=== PATIENT | female | born 1950 | race Caucasian/White ===

== ENCOUNTER 2017-10-11 13:33 | Inpatient (IN) | payer MEDICARE ==
[~2017-10-11] VITALS: Ht 175.3 cm; Wt 64.4 kg
[2017-10-11 13:35] VITALS: BP 172/86; PULSE 100; RESP 17; TEMP 97.8; O2SAT 98
--- NOTE | 2017-10-11 15:44 | PD ---
HPI Chief Complaint: Fall Time Seen by Provider: 14:27 Travel History International Travel<30 days: No Contact w/Intl Traveler<30days: No Traveled to known affect area: No History of Present Illness HPI 67-year-old female presents emergency department via EMS for evaluation of right hip pain after she missed a step on her camper and fell. Patient has not ambulated since the event. Patient states she landed on her right hip she denies any other injuries or pain during this episode. She denies hitting her head or losing consciousness. Patient denies any major medical history. She does not take any daily medication. There is right leg shortening with external rotation noted. Right leg is neurovascularly intact. No ecchymosis or abrasions noted to the right hip. PFSH Past Medical History Diminished Hearing: No Medical other: Yes (LEFT WRIST FX) Tetanus Vaccination: > 5 Years Influenza Vaccination: Yes ?: Not : 2 Para: 2 Past Surgical History Surgical History: No Previous Surgery Social History Alcohol Use: No Tobacco Use: Yes Substance Use: No Allergies-Medications (Allergen,Severity, Reaction): Coded Allergies: codeine (Verified Allergy, Unknown, Nausea/Vomiting, 10/11/17) Reported Meds & Prescriptions Reported Meds & Active Scripts Active No Active Prescriptions or Reported Medications Review of Systems Except as stated in HPI: all other systems reviewed are Neg Physical Exam Narrative GENERAL: Well-nourished, well-developed 67-year-old female in no acute distress. SKIN: Focused skin assessment warm/dry. HEAD: Atraumatic. Normocephalic. EYES: Pupils equal and round. No scleral icterus. No injection or drainage. ENT: No nasal bleeding or discharge. Mucous membranes pink and moist. NECK: Trachea midline. No JVD. CARDIOVASCULAR: Regular rate and rhythm. No murmur appreciated. Pedal pulses + 2 bilaterally. RESPIRATORY: No accessory muscle use. Clear to auscultation. Breath sounds equal bilaterally. GASTROINTESTINAL: Abdomen soft, non-tender, nondistended. Hepatic and splenic margins not palpable. MUSCULOSKELETAL: Right leg shortening with external rotation noted. No clubbing. No cyanosis. No edema. NEUROLOGICAL: Awake and alert. No obvious cranial nerve deficits. Motor grossly within normal limits. Normal speech. PSYCHIATRIC: Appropriate mood and affect; insight and judgment normal. Data Data Last Documented VS Vital Signs Date Time Temp Pulse Resp B/P (MAP) Pulse Ox O2 Delivery O2 Flow Rate FiO2 10/11/17 17:16 17 10/11/17 15:58 97.8 100 170/83 (112) 98 Room Air Orders Orders Hip, Uni(Ap&Lat) W Ap Pelvis (10/11/17 14:47) Ice/Cold Pack (10/11/17 14:47) Complete Blood Count With Diff (10/11/17 16:33) Comprehensive Metabolic Panel (10/11/17 16:33) Prothrombin Time / Inr (Pt) (10/11/17 16:33) Act Partial Throm Time (Ptt) (10/11/17 16:33) Electrocardiogram (10/11/17 ) Morphine Inj (Morphine Inj) (10/11/17 17:00) Sodium Chlorid 0.9% 500 Ml Inj (Ns 500 M (10/11/17 17:00) Ondansetron Inj (Zofran Inj) (10/11/17 17:00) Admit Order (Ed Use Only) (10/11/17 17:16) Labs Laboratory Tests Test 10/11/17 16:35 White Blood Count 10.1 TH/MM3 Red Blood Count 4.28 MIL/MM3 Hemoglobin 13.2 GM/DL Hematocrit 40.1 % Mean Corpuscular Volume 93.7 FL Mean Corpuscular Hemoglobin 30.9 PG Mean Corpuscular Hemoglobin Concent 33.0 % Red Cell Distribution Width 13.1 % Platelet Count 258 TH/MM3 Mean Platelet Volume 9.6 FL Neutrophils (%) (Auto) 81.5 % Lymphocytes (%) (Auto) 12.3 % Monocytes (%) (Auto) 4.8 % Eosinophils (%) (Auto) 0.9 % Basophils (%) (Auto) 0.5 % Neutrophils # (Auto) 8.2 TH/MM3 Lymphocytes # (Auto) 1.2 TH/MM3 Monocytes # (Auto) 0.5 TH/MM3 Eosinophils # (Auto) 0.1 TH/MM3 Basophils # (Auto) 0.0 TH/MM3 CBC Comment DIFF FINAL Differential Comment Prothrombin Time 10.5 SEC Prothromb Time International Ratio 1.0 RATIO Activated Partial Thromboplast Time 24.8 SEC Total Protein 7.2 GM/DL Alkaline Phosphatase 93 U/L Alanine Aminotransferase (ALT/SGPT) 18 U/L Total Bilirubin 0.5 MG/DL MDM Medical Decision Making Medical Screen Exam Complete: Yes Emergency Medical Condition: Yes Differential Diagnosis Differential diagnoses include but not limited to right hip sprain, contusion, fracture, fall Narrative Course Right hip x-ray ordered and pending. Ice applied to the right hip. Right hip x-ray shows moderately angulated intra-trochanteric fracture of the right hip. IV placed and blood works sent to the lab. CBC, CMP, PT/INR ordered and pending. EKG ordered and interpreted. EKG shows sinus tachycardia with heart rate 103. 500 mL normal saline bolus, 4 mg IV Zofran, 2 mg IV morphine ordered. Patient has not eaten since last night. Orthopedics called. Patient will be admitted. Residents accepted admission. Dr. Davison called and he is coming to evaluate the patient. Patient admitted this time with Dr. Davison, orthopedics consulted. Diagnosis Primary Impression: Hip fracture Qualified Codes: S72.001A - Fracture of unspecified part of neck of right femur, initial encounter for closed fracture Additional Impression: Fall Qualified Codes: W19.XXXA - Unspecified fall, initial encounter Admitting Information Admitting Physician Requests: Admit Scripts No Active Prescriptions or Reported Meds Heather Kirkpatrick Oct 11, 2017 15:44
--- NOTE | 2017-10-11 15:51 | RADRPT ---
EXAM DATE/TIME: 10/11/2017 15:32 [facility] COMPARISON: No previous studies available for comparison. INDICATIONS : Right hip pain, fell today. MEDICAL HISTORY : None. SURGICAL HISTORY : None. ENCOUNTER: Initial ACUITY: 1 day PAIN SCORE: 10/10 LOCATION: Right hip and pelvis FINDINGS: The examination demonstrates a moderately angulated intratrochanteric fracture of the right hip. The remainder of the osseous structures visualized are intact. CONCLUSION: 1. Moderately angulated intratrochanteric fracture of the right hip. Iglesia Cabezas MD on October 11, 2017 at 15:48 Board Certified Radiologist. This report was verified electronically.
[2017-10-11 15:58] VITALS: BP 170/83; PULSE 100; RESP 17; TEMP 97.8; O2SAT 98
[2017-10-11] MEDS ORDERED: MORPHINE SULFATE 2 MG/ML INJ IV PUSH ONE (17:00)
[2017-10-11] MEDS ORDERED: ONDANSETRON HCL 4 MG/2 ML VIAL IV PUSH ONE (17:00)
[2017-10-11] MEDS ORDERED: SODIUM CHLORID 0.9% 500 ML INJ 500 ML IV ONE (17:00)
[2017-10-11 17:21] LABS: AUTOMATED NEUTROPHIL # 8.2 TH/MM3 (1.8-7.7); BASOPHIL % 0.5 % (0.0-2.0); EOSINOPHIL # 0.1 TH/MM3 (0-0.4); EOSINOPHIL % 0.9 % (0.0-4.0); HEMATOCRIT 40.1 % (35.0-46.0); HEMOGLOBIN 13.2 GM/DL (11.6-15.3); LYMPH % 12.3 % (9.0-44.0); LYMPHOCYTE # 1.2 TH/MM3 (1.0-4.8); MEAN CELL VOLUME 93.7 FL (80.0-100.0); MEAN CORPUSCULAR HEMOGLOBIN 30.9 PG (27.0-34.0); MEAN PLATELET VOLUME 9.6 FL (7.0-11.0); MONO % 4.8 % (0.0-8.0); MONOCYTE # 0.5 TH/MM3 (0-0.9); NEUT % 81.5 % (16.0-70.0); PLATELET COUNT 258 TH/MM3 (150-450); RED BLOOD COUNT 4.28 MIL/MM3 (4.00-5.30); RED CELL DISTRIBUTION WIDTH 13.1 % (11.6-17.2); WHITE BLOOD COUNT 10.1 TH/MM3 (4.0-11.0)
[2017-10-11 17:30] LABS: PROTHROMBIN TIME - PATIENT 10.5 SEC (9.8-11.6)
[2017-10-11 17:40] LABS: ALT (GPT) 18 U/L (10-53)
[2017-10-11 17:42] LABS: ALKALINE PHOSPHATASE 93 U/L (45-117); TOTAL BILIRUBIN ADULT 0.5 MG/DL (0.2-1.0); TOTAL PROTEIN 7.2 GM/DL (6.4-8.2)
[2017-10-11 17:44] LABS: ALBUMIN 3.7 GM/DL (3.4-5.0); AST (GOT) 32 U/L (15-37); BICARBONATE 26.7 MEQ/L (21.0-32.0); BLOOD UREA NITROGEN 9 MG/DL (7-18); CALCIUM 9.1 MG/DL (8.5-10.1); CHLORIDE 103 MEQ/L (98-107); CREATININE 0.74 MG/DL (0.50-1.00); GLOMERULAR FILTRATION RATE 78 ML/MIN (>89); GLUCOSE,RANDOM 114 MG/DL (74-106); SODIUM (NA) 137 MEQ/L (136-145)
[2017-10-11] MEDS ORDERED: HYDR-3288 PO (18:07)
[2017-10-11] MEDS ORDERED: ASPI81CH6 CHEW (18:08)
[2017-10-11] MEDS ORDERED: ENOX40P SQ (18:08)
[2017-10-11] MEDS ORDERED: SENNOSIDES 8.6 MG TAB PO PRN (18:15)
[2017-10-11] MEDS ORDERED: NALOXONE HCL 0.4 MG/ML AMP IV PUSH PRN (18:15)
[2017-10-11] MEDS ORDERED: MAGNESIUM HYDROXIDE SUSP 30 ML CUP PO PRN ×2 (18:15→21:00)
[2017-10-11] MEDS ORDERED: SODIUM CHLORIDE 0.9% FLUSH 10 ML FLUSH IV FLUSH PRN (18:15)
[2017-10-11] MEDS ORDERED: BISACODYL 10 MG SUPP RECTAL PRN (18:15)
[2017-10-11] MEDS ORDERED: LACTULOSE SYRUP 20 GM/30 ML CUP PO PRN (18:15)
--- NOTE | 2017-10-11 18:29 | HHI.HP ---
[facility] Service Family Medicine Primary Care Physician Unknown Admission Diagnosis right hip fracture Diagnoses: International Travel<30 Days: No Contact w/Intl Traveler<30days: No Known Affected Area: No History of Present Illness Patient was a 67-year-old female with no known chronic medical problems who came in for a "broken hip." She states that early this morning she was walking back into her camper stepped up onto the step lost her balance and fell down. It may be because it was raining out at the time and was slippery. She is unsure of how she fell, she may have fallen backwards. She reports a small bump on the back of her head that she noticed when she was brushing her hair. No loss of consciousness, headache, head pain, neck pain, change in vision, amnesia , nausea, vomiting. She attempted to give herself back into the camper but couldn't due to her hip pain., had to be dragged by her . They called an ambulance and went to the hospital. Her right hip pain is noted as an 8-9 out of 10, sharp, can be felt in her front thigh muscles, prevents her from walking. No numbness, tingling, cold feeling in her feet. Denies any broken or loose teeth, blood in mouth, tongue pain. (Eliu Araya MD R1) Review of Systems Constitutional: DENIES: Fatigue, Fever, Weight gain, Weight loss, Chills, Dizziness, Change in appetite, Night Sweats Endocrine: DENIES: Polydipsia, Polyuria Eyes: DENIES: Blurred vision, Diplopia, Eye inflammation, Eye pain, Vision loss , Photosensitivity, Double Vision Ears, nose, mouth, throat: COMPLAINS OF: Hearing loss (Chronic hearing loss in left ear), DENIES: Tinnitus, Vertigo, Throat pain, Hoarseness, Ear Pain, Running Nose, Epistaxis, Sinus Pain, Odynophagia Respiratory: COMPLAINS OF: Cough, DENIES: Apneas, Wheezing, Hemoptysis, Sputum production, Shortness of breath Cardiovascular: DENIES: Chest pain, Palpitations, Syncope, Dyspnea on Exertion , Lower Extremity Edema Gastrointestinal: DENIES: Abdominal pain, Black stools, Bloody stools, Constipation, Diarrhea, Nausea, Vomiting Genitourinary: DENIES: Urinary frequency, Urinary incontinence, Dysuria Musculoskeletal: COMPLAINS OF: Muscle aches (Right thigh), Stiffness (Right thigh), DENIES: Joint pain, Joint Swelling, Back pain, Neck pain Integumentary: DENIES: Abnormal pigmentation, Rash Hematologic/lymphatic: COMPLAINS OF: Bruising (Right hand), DENIES: Lymphadenopathy Immunologic/allergic: DENIES: Eczema, Urticaria Neurologic: COMPLAINS OF: Abnormal gait (Cannot ambulate at this time), DENIES : Headache, Localized weakness, Paresthesias, Seizures Psychiatric: DENIES: Anxiety, Confusion, Hallucinations, Suicidal Ideation, Homicidal Ideation (Eliu Araya MD R1) Past Family Social History Past Medical History None Past Surgical History Left wrist 2007 Left knee - bursal sac removed ~1994 (Eliu Araya MD R1) Allergies: Coded Allergies: codeine (Verified Allergy, Unknown, Nausea/Vomiting, 10/11/17) Family History Mother: at 96 from fall Father: at 96 from kidney problems Unsure of medical problems Brother: Healthy Sister: Healthy Social History EtOH: none Tobacco:1/2 pack a day for 40+ years Drugs: None (Eliu Araya MD R1) Physical Exam Vital Signs Vital Signs Date Time Temp Pulse Resp B/P (MAP) Pulse Ox O2 Delivery O2 Flow Rate FiO2 10/11/17 17:16 17 10/11/17 15:58 97.8 100 17 170/83 (112) 98 Room Air 10/11/17 13:40 98 17 98 Room Air 10/11/17 13:35 97.8 100 17 172/86 (114) 98 Physical Exam GENERAL: This is a well-nourished, well-developed patient, in no apparent distress. SKIN: No rashes, ecchymoses or lesions. Cool and dry. HEAD:Normocephalic. Small swelling located in right posterior superior occiput. No temporal or scalp tenderness. EYES: Pupils equal round and reactive. Extraocular motions intact. No scleral icterus. No injection or drainage. ENT: Nose without bleeding, purulent drainage or septal hematoma. Throat without erythema, tonsillar hypertrophy or exudate. Uvula midline. Airway patent. NECK: Trachea midline. No JVD or lymphadenopathy. Supple, nontender, no meningeal signs. CARDIOVASCULAR: Regular rate and rhythm without murmurs, gallops, or rubs. RESPIRATORY: Clear to auscultation. Breath sounds equal bilaterally. No wheezes , rales, or rhonchi. GASTROINTESTINAL: Abdomen soft, non-tender, nondistended. No hepato-splenomegaly , or palpable masses. No guarding. MUSCULOSKELETAL: Extremities without clubbing, cyanosis, or edema. No joint tenderness, effusion, or edema noted. No calf tenderness. Right leg externally rotated, extremely painful when moved, pedal and posterior tibial pulses intact bilaterally. Able to move toes bilaterally. NEUROLOGICAL: Awake and alert. Cranial nerves II through XII intact. Motor and sensory grossly within normal limits. Five out of 5 muscle strength in all muscle groups, not performed and right lower extremity due to pain, deferred. Normal speech. Laboratory Laboratory Tests Test 10/11/17 16:35 White Blood Count 10.1 Red Blood Count 4.28 Hemoglobin 13.2 Hematocrit 40.1 Mean Corpuscular Volume 93.7 Mean Corpuscular Hemoglobin 30.9 Mean Corpuscular Hemoglobin Concent 33.0 Red Cell Distribution Width 13.1 Platelet Count 258 Mean Platelet Volume 9.6 Neutrophils (%) (Auto) 81.5 Lymphocytes (%) (Auto) 12.3 Monocytes (%) (Auto) 4.8 Eosinophils (%) (Auto) 0.9 Basophils (%) (Auto) 0.5 Neutrophils # (Auto) 8.2 Lymphocytes # (Auto) 1.2 Monocytes # (Auto) 0.5 Eosinophils # (Auto) 0.1 Basophils # (Auto) 0.0 CBC Comment DIFF FINAL Differential Comment Prothrombin Time 10.5 Prothromb Time International Ratio 1.0 Activated Partial Thromboplast Time 24.8 Blood Urea Nitrogen 9 Creatinine 0.74 Random Glucose 114 Total Protein 7.2 Albumin 3.7 Calcium Level 9.1 Alkaline Phosphatase 93 Aspartate Amino Transf (AST/SGOT) 32 Alanine Aminotransferase (ALT/SGPT) 18 Total Bilirubin 0.5 Sodium Level 137 Potassium Level 4.9 Chloride Level 103 Carbon Dioxide Level 26.7 Anion Gap 7 Estimat Glomerular Filtration Rate 78 (Eliu Araya MD R1) Result Diagram: 10/11/17 1635 10/11/17 1635 Imaging Last 24 hours Impressions Hip and Pelvis X-Ray 10/11/17 1447 Signed Impressions: Service Date/Time: Wednesday, October 11, 2017 15:32 - CONCLUSION: 1. Moderately angulated intratrochanteric fracture of the right hip. Iglesia Cabezas MD (Eliu Araya MD R1) Caprini VTE Risk Assessment Caprini VTE Risk Assessment: Mod/High Risk (score >= 2) Caprini Risk Assessment Model Point Value = 1 Point Value = 2 Point Value = 3 Point Value = 5 Age 41-60 Minor surgery BMI > 25 kg/m2 Swollen legs Varicose veins or History of unexplained or recurrent spontaneous Oral contraceptives or hormone replacement Sepsis (< 1 month) Serious lung disease, including pneumonia (< 1 month) Abnormal pulmonary function Acute myocardial infarction Congestive heart failure (< 1 month) History of inflammatory bowel disease Medical patient at bed rest Age 61-74 Arthroscopic surgery Major open surgery (> 45 min) Laparoscopic surgery (> 45 min) Malignancy Confined to bed (> 72 hours) Immobilizing plaster cast Central venous access Age >= 75 History of VTE Family history of VTE Factor V Leiden Prothrombin [id number] Lupus anticoagulant Anticardiolipin antibodies Elevated serum homocysteine Heparin-induced thrombocytopenia Other congenital or acquired thrombophilia Stroke (< 1 month) Elective arthroplasty Hip, pelvis, or leg fracture Acute spinal cord injury (< 1 month) Prophylaxis Regimen Total Risk Factor Score Risk Level Prophylaxis Regimen 0-1 Low Early ambulation 2 Moderate Order ONE of the following: *Sequential Compression Device (SCD) *Heparin 5000 units SQ BID 3-4 Higher Order ONE of the following medications: *Heparin 5000 units SQ TID *Enoxaparin/Lovenox 40 mg SQ daily (WT < 150 kg, CrCl > 30 mL/min) *Enoxaparin/Lovenox 30 mg SQ daily (WT < 150 kg, CrCl > 10-29 mL/min) *Enoxaparin/Lovenox 30 mg SQ BID (WT < 150 kg, CrCl > 30 mL/min) AND/OR *Sequential Compression Device (SCD) 5 or more Highest Order ONE of the following medications: *Heparin 5000 units SQ TID (Preferred with Epidurals) *Enoxaparin/Lovenox 40 mg SQ daily (WT < 150 kg, CrCl > 30 mL/min) *Enoxaparin/Lovenox 30 mg SQ daily (WT < 150 kg, CrCl > 10-29 mL/min) *Enoxaparin/Lovenox 30 mg SQ BID (WT < 150 kg, CrCl > 30 mL/min) AND *Sequential Compression Device (SCD) (Eliu Araya MD R1) Assessment and Plan Assessment and Plan 67-year-old female with no reported past history was admitted for a right intertrochanteric fracture. To be seen, evaluated by orthopedic surgery. Likely surgery 10/11/17. Code Status Full code (Eliu Araya MD R1) Problem List: (1) Closed fracture of intertrochanteric section of femur ICD Codes: S72.143A - Displaced intertrochanteric fracture of unspecified femur , initial encounter for closed fracture Plan: Close fracture of intertrochanteric right femur. -To have surgery tonight -Nothing by mouth until surgery -[place] when necessary for pain -Morphine when necessary for breakthrough pain -Follow up orthopedic surgery recommendations -Counseled on the importance of having a primary care provider, possibility of osteoporosis, need for outpatient follow-up (2) FEN Plan: Fluids: Maintenance fluids, nothing by mouth, likely surgery tonight Electrolytes: Monitor and replace is needed Nutrition: Nothing by mouth, likely surgery tonight Prophylaxis: No DVT prophylaxis at this time due to surgery tonight (Eliu Araya MD R1) Problem List: (1) Closed fracture of intertrochanteric section of femur ICD Codes: S72.143A - Displaced intertrochanteric fracture of unspecified femur , initial encounter for closed fracture Plan: Close fracture of intertrochanteric right femur. -To have surgery tonight -Nothing by mouth until surgery -[place] when necessary for pain -Morphine when necessary for breakthrough pain -Follow up orthopedic surgery recommendations -Counseled on the importance of having a primary care provider, possibility of osteoporosis, need for outpatient follow-up (2) FEN Plan: Fluids: Maintenance fluids, nothing by mouth, likely surgery tonight Electrolytes: Monitor and replace is needed Nutrition: Nothing by mouth, likely surgery tonight Prophylaxis: No DVT prophylaxis at this time due to surgery tonight See the residents documentation for details. I saw and evaluated the patient regarding the jolley portions of this evaluation and agree with the residents findings and plans as written. I have reviewed the patients past medical/surgical and social histories and updated as appropriate. Parts of this note were created using [employer] voice recognition software program. While efforts were made to correct any mistakes made by this software, some mistakes, errors, and omissions may remain in the final note that were not caught when the note was originally created. Plan of care was discussed and agreed upon with the patient as specifically documented in the above note. An opportunity to ask questions with explanation was provided. Patient voiced understanding on all information reviewed and discussed. (David Vee MD) Physician Certification 2 Midnight Certification Type: Admission for Inpatient Services Order for Inpatient Services The services are ordered in accordance with Medicare regulations or non- Medicare payer requirements, as applicable. In the case of services not specified as inpatient-only, they are appropriately provided as inpatient services in accordance with the 2-midnight benchmark. Estimated LOS (days): 2 2 days is the estimated time the patient will need to remain in the hospital, assuming treatment plan goals are met and no additional complications. Post-Hospital Plan: Not yet determined (Eliu Araya MD R1) Eliu Araya MD R1 Oct 11, 2017 18:29 David Vee MD Oct 12, 2017 15:19
[2017-10-11 18:54] VITALS: BP 150/86; TEMP 97.8
[2017-10-11] MEDS ORDERED: VANCOMYCIN HCL 1000 MG VIAL ONE (19:22)
[2017-10-11] MEDS ORDERED: GENTAMICIN SULFATE 80 MG/2 ML VIAL ONE (19:22)
[2017-10-11] MEDS ORDERED: ceFAZolin INJ 1,000 MG VIAL ONE (19:22)
[2017-10-11] MEDS ORDERED: RESP: ALBUTEROL 2.5 MG/IPRATROPIUM 0.5 MG NEB (SCH) ONE (19:42)
[2017-10-11] MEDS ORDERED: RESP: ALBUTEROL 2.5 MG/IPRATROPIUM 0.5 MG NEB (SCH) NEB ONE (20:00)
[2017-10-11] MEDS ORDERED: DOCUSATE SODIUM 50 MG/SENNA 8.6 MG TAB PO SCH (21:00)
[2017-10-11] MEDS: DOCUSATE SODIUM 50 MG/SENNA 8.6 MG TAB PO SCH (21:00)
[2017-10-11] MEDS ORDERED: ACETAMINOPHEN/HYDROcodone 325 MG/7.5 MG TAB PO PRN (21:00)
[2017-10-11] MEDS ORDERED: MISCELLANEOUS NURSING INFORMATION XX PRN (21:00)
[2017-10-11] MEDS ORDERED: MISCELLANEOUS PHARMACY INFORMATION XX ONE (21:00)
[2017-10-11] MEDS ORDERED: ONDANSETRON HCL 4 MG/2 ML VIAL IVP PRN (21:00)
[2017-10-11] MEDS ORDERED: Post-op Orders (for Pharmacy) XX ONE (21:00)
[2017-10-11] MEDS ORDERED: diphenhydrAMINE HCL 25 MG CAP PO PRN (21:00)
[2017-10-11] MEDS ORDERED: DO NOT ADM ANY ANTICOAGULANT DRUGS PRN (21:10)
[2017-10-11] MEDS ORDERED: *MEPERIDINE 25 MG INJ VIAL PERIprocedural Use ONLY ONE (21:13)
--- NOTE | 2017-10-11 21:37 | RADRPT ---
EXAM DATE/TIME: 10/11/2017 20:47 [facility] COMPARISON: HIP RIGHT (AP&LAT 2/3VWS) W AP PELVIS, October 11, 2017, 15:32. INDICATIONS : ORIF rt hip. MEDICAL HISTORY : None. SURGICAL HISTORY : None. ENCOUNTER: Subsequent ACUITY: 1 day PAIN SCORE: Non-responsive. LOCATION: Right Hip FINDINGS: Intramedullary emily is present traversing the femur with fixation screws proximally and distally. Ther e is gross anatomical alignment of the fracture fragments. CONCLUSION: Intact postsurgical changes. Kota Lehman MD on October 11, 2017 at 21:35 Board Certified Radiologist. This report was verified electronically.
[2017-10-11] MEDS ORDERED: *morphine SULFATE 4 MG/ML PERIprocedure ONLY ONE ×2 (21:43→22:00)
[2017-10-11] MEDS: SODIUM CHLORIDE 0.9% FLUSH 10 ML FLUSH IV FLUSH SCH (22:00)
[2017-10-11] MEDS: DEXT 5%-NACL 0.45% 1000 ML INJ 1,000 ML IV SCH (22:00)
--- NOTE | 2017-10-11 22:17 | MB ---
cc: MARCELL DAVIS M.D. DATE OF CONSULTATION: 10/11/2017 REASON FOR CONSULTATION: Right hip fracture. HISTORY The patient is a 67-year-old female who presents to [facility] emergency room. She had trip and fall injury backwards stepping up into a camper. She sustained severe injury to the right hip. She cannot stand, bear weight, or ambulate. She denies loss of consciousness. The pain is severe and constant. It was throbbing, worsening symptoms with any movement of the right hip region. No numbness or tingling. PAST MEDICAL HISTORY: Negative. PAST SURGICAL HISTORY: Left wrist surgery. Left knee surgery. ALLERGIES CODEINE. MEDICATIONS: None. FAMILY HISTORY: Positive for kidney disease. SOCIAL HISTORY: She does not drink. She smokes half-pack per day for the last 40 years and continues to smoke. Denies drugs. REVIEW OF SYSTEMS: Negative for 10 systems other than in the HPI. PHYSICAL EXAMINATION: VITAL SIGNS: Temperature 98, respiratory rate 17, pulse 100, blood pressure 170/80. The patient is awake, alert, lying in bed in mild distress. HEENT: Normocephalic, atraumatic. Pupils equal, round and reactive to light. Neck: Neck is supple. Lungs: Clear. Heart: Regular rate and rhythm. Abdomen: Soft, nontender. Skin: Intact. Extremities: She has shortening and external rotation of the right hip. She had pain on motion of the right hip. She can flex her ankle and toes distally. Brisk capillary refill. Sensation intact distally. LABORATORY DATA: White blood cell count is 10, hemoglobin 13, hematocrit 40, platelet count 258, glucose 114. Creatinine 0.47. X-RAYS: Right hip x-ray reveals comminuted displaced intertrochanteric right hip fracture. IMPRESSION This 67-year-old female status post fall, right displaced intertrochanteric hip fracture. PLAN I discussed the diagnosis with the patient and patient's at the bedside. I discussed treatment options, nonoperative treatment versus surgery. Surgery will consist of intermedullary nailing of the right hip fracture. The risks of surgery was discussed which include but not limited to anesthesia, bleeding, infection, damage to nerves, blood vessels, pain, stiffness, failure of hardware, blood clot, embolism. I have discussed the need for smoking cessation. The patient has asked appropriate questions which have been answered. She is in favor of proceeding with surgery. Written consent has been obtained. The surgical site has been marked. MD ALLI Lea/LIZANDRO /7:10 PM /9:21 PM
[2017-10-11] MEDS ORDERED: ASPIRIN 325 MG TAB PO ONE (22:30)
[2017-10-11 23:06] LABS: TROPONIN I 0.04 NG/ML (0.02-0.05)
[2017-10-11 23:13] VITALS: BP 148/82; PULSE 107; TEMP 98.1; O2SAT 97
[2017-10-11 23:53] VITALS: PULSE 102
[2017-10-12] VITALS (15 sets, daily range): BP systolic 121–157; BP diastolic 62–92; PULSE 50–108; RESP 16–18; TEMP 98.2–99.7; O2SAT 94–100
[2017-10-12 05:18] LABS: HEMATOCRIT 32.6 % (35.0-46.0); HEMOGLOBIN 10.9 GM/DL (11.6-15.3); MEAN CELL VOLUME 92.2 FL (80.0-100.0); MEAN CORPUSCULAR HEMOGLOBIN 30.9 PG (27.0-34.0); MEAN CORPUSCULAR HGB CONC 33.5 % (32.0-36.0); MEAN PLATELET VOLUME 8.7 FL (7.0-11.0); PLATELET COUNT 193 TH/MM3 (150-450); RED BLOOD COUNT 3.53 MIL/MM3 (4.00-5.30); RED CELL DISTRIBUTION WIDTH 13.1 % (11.6-17.2); WHITE BLOOD COUNT 10.7 TH/MM3 (4.0-11.0)
[2017-10-12] MEDS: DEXT 5%-NACL 0.45% 1000 ML INJ 1,000 ML IV SCH ×3 (05:26→20:32)
[2017-10-12 05:58] LABS: BICARBONATE 28.2 MEQ/L (21.0-32.0); CALCIUM 7.6 MG/DL (8.5-10.1); CREATININE 0.68 MG/DL (0.50-1.00); TROPONIN I 0.03 NG/ML (0.02-0.05)
--- NOTE | 2017-10-12 07:13 | MP ---
cc: MARCELL DAVIS M.D. DATE OF SURGERY 10/11/2017 PREOPERATIVE DIAGNOSIS Right intertrochanteric hip fracture. POSTOPERATIVE DIAGNOSES Right intertrochanteric hip fracture. PROCEDURE Intramedullary nailing right intertrochanteric hip fracture. SURGEON Dr. Marcell Davis BOTTLE PACKING MACHINE CLEANER SUNDEEP Klein ANESTHESIA General ESTIMATED BLOOD LOSS 100 cc COMPLICATIONS None IMPLANTS USED Synthes JUSTIFICATION This patient is a 67-year-old female who fell sustaining a displaced right comminuted intertrochanteric hip fracture. She was taken to [facility] emergency room where x-rays confirmed the above-named findings. With the surgery consultation, the patient was counseled as to the risks, benefits and alternatives to the above-named proposed surgical procedure. She did wish to proceed with surgery. PROCEDURE IN DETAIL A written consent was obtained. The patient identified by name, taken to the operating room, placed supine on the operating room table, general anesthesia was administered as well as 2 grams of IV Ancef and 1 gram of IV vancomycin. The patient was carefully transitioned to the fracture table. The right foot placed in a padded traction boot. The left leg placed in a padded well leg crystal. All bony prominences and pressure points were well padded. The right hip prepped and draped using Isopropyl alcohol, Hibiclens solution and Chloraprep solution. After a time-out was performed, a longitudinal incision made over the lateral aspect of right hip. The fascial layer was incised and a guidewire was used to gain entrance into the intramedullary canal of the femur from the tip of the greater trochanter. This was followed by cannulated entry reamer and subsequently a Synthes 10-mm titanium trochanteric femoral nail was inserted into the intramedullary canal of the femur. The 130 degree locking jig was used to place a guide pin centered into the femoral head on the AP and lateral fluoroscopic projections. This was followed by placement of a titanium spiral blade with a top-locking screw. This was secured to get a fixed angle slot sliding construct. Distally, the locking jig was used to place a single lateral to medial transverse static locking screws. Fluoroscopic imaging again confirmed hardware placement fracture reduction. The surgical wound was thoroughly irrigated with sterile saline solution. The fascia was closed with #1 Vicryl suture, subcutaneous layer with 2-0 Vicryl suture, skin was closed with Dermabond. Sterile dressing applied. The patient tolerated the procedure well with no intraoperative complications noted. Jorge Beebe, Physician [place] Master Certified, was present during the entire procedure to include patient positioning and the procedure itself. The medical necessity of a physician special education teaching assistant was indicated in this case due to the complexity of the procedure. He assisted with appropriate manipulation of the leg and also retraction of muscle, bone, tendon and neurovascular structures. He assisted with preparation of bone and also implantation of the internal fixation device. MD ALLI Lea/YEIMY /8:48 PM /6:50 AM
[2017-10-12] MEDS ORDERED: CALCIUM CARBONATE 1.25 GM (CA 500 MG) TAB PO ONE (07:15)
--- NOTE | 2017-10-12 08:25 | PD.ORT.PN ---
Subjective Post Op Day #: 1 Subjective Remarks pain tolerable. seen in cardiac unit. denies cp and sob. Objective Vitals Vital Signs Date Time Temp Pulse Resp B/P (MAP) Pulse Ox O2 Delivery O2 Flow Rate FiO2 10/12/17 06:24 50 10/12/17 05:10 63 10/12/17 04:00 98 10/12/17 03:00 98.3 104 142/92 (109) 100 10/12/17 03:00 102 10/12/17 02:00 102 10/12/17 01:00 98 10/12/17 00:00 102 10/11/17 23:53 102 10/11/17 23:13 98.1 107 148/82 (104) 97 10/11/17 23:00 108 12 160/80 (106) 98 Nasal Cannula 3 10/11/17 22:45 98.3 108 12 152/76 (101) 99 Nasal Cannula 3 10/11/17 22:30 64 15 160/67 (98) 98 Nasal Cannula 3 10/11/17 22:15 62 9 177/97 (123) 98 Nasal Cannula 3 10/11/17 22:00 63 16 162/74 (103) 98 Nasal Cannula 3 10/11/17 21:45 62 14 186/81 (116) 99 Nasal Cannula 3 10/11/17 21:30 65 11 162/79 (106) 100 Nasal Cannula 3 10/11/17 21:16 98.3 75 10 164/69 (100) 97 Nasal Cannula 3 10/11/17 19:50 90 Nasal Cannula 2.5 10/11/17 19:00 98.9 113 15 153/75 (101) 92 10/11/17 18:54 97.8 78 16 150/86 (107) 98 10/11/17 17:16 17 10/11/17 15:58 97.8 100 17 170/83 (112) 98 Room Air 10/11/17 13:40 98 17 98 Room Air 10/11/17 13:35 97.8 100 17 172/86 (114) 98 I/O 10/11/17 10/11/17 10/11/17 10/12/17 10/12/17 10/12/17 07:00 15:00 23:00 07:00 15:00 23:00 Intake Total 1750 ml 240 ml Output Total 310 ml 250 ml Balance 1440 ml -10 ml Intake Oral 240 ml IV Total 600 ml Other 1150 ml Output Urine Total 60 ml 250 ml Estimated Blood Loss 100 ml Other 150 ml Result Diagram: 10/12/1744210/12/17442 Other Results Laboratory Tests Test 10/11/17 16:35 Prothromb Time International Ratio 1.0 RATIO Prothrombin Time 10.5 SEC (9.8-11.6) Imaging Last 24 hours Impressions Hip and Pelvis X-Ray 10/11/171446 Signed Impressions: Service Date/Time: Wednesday, October 11, 2017 15:32 - CONCLUSION: 1. Moderately angulated intratrochanteric fracture of the right hip. Iglesia Cabezas MD Objective Remarks in bed, nad dressing c/d/i neg emyns nvi Assessment & Plan Ortho Post Op Day #: 1 Problem List: Assessment and Plan s/p R Troch Nail 50% PWB daily dressing changes lovenox cardiac unit post-op med management d/c planning to snf f/up dr. pappas 2 weeks Darryn Beebe Oct 12, 2017 08:25
[2017-10-12] MEDS: MULTIVITAMINS/MINERALS THERAPEUTIC TAB PO SCH (11:00)
[2017-10-12] MEDS: DOCUSATE SODIUM 50 MG/SENNA 8.6 MG TAB PO SCH ×2 (11:00→20:21)
[2017-10-12] MEDS: SODIUM CHLORIDE 0.9% FLUSH 10 ML FLUSH IV FLUSH SCH ×2 (11:00→20:22)
--- NOTE | 2017-10-12 11:07 | MB ---
cc: RASHID SPEARS M.D. DATE OF CONSULTATION 10/12/2017 REASON FOR CONSULTATION Abnormal EKG. HISTORY OF PRESENT ILLNESS Cheryl Dobson is a 67-year-old woman who apparently has not been to a doctor for a regular visit in 30 years. She goes if she gets sick but has not had a regular physician follow-up. I am consulted for abnormalities on her EKG. In talking to her she is somewhat active. She denies any chest pain, shortness of breath, syncope or presyncope. She fell missing a step coming out of her camper and broke her hip and has now undergone hip surgery. I cannot elicit any cardiac symptoms from her and her troponins are negative. PAST MEDICAL HISTORY She has not established any past medical history. PAST SURGICAL HISTORY She has had surgery on her left wrist and surgery on her left knee. ALLERGIES CODEINE. FAMILY HISTORY Negative for heart disease. SOCIAL HISTORY Notable for longstanding smoking of a half pack per day most of her life. REVIEW OF SYSTEMS Otherwise negative. PHYSICAL EXAMINATION GENERAL: A well-developed, well-nourished female who appears somewhat older than her stated age. VITAL SIGNS: Are charted. Her blood pressure yesterday was somewhat elevated and is down to normal today. HEENT: Exam unremarkable. NECK: No JVD. No bruits. CHEST: Clear anteriorly. CARDIAC: S1, S2, regular rate and rhythm. No murmurs or gallops. ABDOMEN: Soft. EXTREMITIES: Intact peripheral pulses. No peripheral edema. LABORATORY Lab work shows a troponin of 0.04 and 0.03. Glucose is mildly elevated suggestive of prediabetes and suggest getting a medical consult for that. EKG EKG shows sinus rhythm with some nonspecific ST-T abnormality. Minimal change between the two tracings she has had done. IMPRESSION AND RECOMMENDATIONS Nonspecific ST-T wave changes on her EKG. No anginal symptoms. No evidence of infarction. She has an elevated blood sugar that needs medical follow-up. I encouraged her to quit smoking. I do not think is would be a good time to pursue further work-up of the EKG, i.e., I do not recommend a stress test. She has just undergone hip surgery and tolerated that okay. She will be returning to [place] as soon as she is well. I will be available on an as-needed basis. Please call for any questions. MD CARROLL Carter /10:40 AM /10:44 AM
--- NOTE | 2017-10-12 12:43 | HHI.HP ---
HPI Service Family Medicine Primary Care Physician Unknown Admission Diagnosis right hip fracture Diagnoses: (1) Closed fracture of intertrochanteric section of femur (2) FEN International Travel<30 Days: No Contact w/Intl Traveler<30days: No Known Affected Area: No History of Present Illness Patient was seen and examined at the bedside today. She is feeling well today. She does complain of some very mild right-sided hip pain, but says that has been improving. She denies any issues with shortness of breath, chest pain, or abdominal discomfort. Overall she is doing well. She underwent surgical intervention for her fracture yesterday. She was seen by cardiology today for some EKG changes after surgery. Feels well, is looking forward to starting the rehabilitation process of her healing. No loss of consciousness, headache, head pain, neck pain, change in vision, amnesia, nausea, vomiting. . Review of Systems Other REVIEW OF SYSTEMS: General: Denies fever or other problems. Skin: Denies rash. HEENT: No diplopia. No epistaxis. No headache. Head: Denies head injury. Respiratory: No cough. Denies shortness of breath. Cardiovascular: No chest pain. No reduced exercise tolerance. Gastrointestinal: No abdominal pain. No constipation or diarrhea. No hematemesis and rectal bleeding. Genitourinary: No abnormal urination. Hematologic: No easy bruisability. Musculoskeletal: See HPI. Neurologic: See HPI. Psychiatric: Denies problems. Past Family Social History Past Medical History None Past Surgical History Left wrist 2007 Left knee - bursal sac removed ~1994 Allergies: Coded Allergies: codeine (Verified Allergy, Unknown, Nausea/Vomiting, 10/11/17) Family History Mother: at 96 from fall Father: at 96 from kidney problems Unsure of medical problems Brother: Healthy Sister: Healthy Social History EtOH: none Tobacco:1/2 pack a day for 40+ years Drugs: None Physical Exam Vital Signs Vital Signs Date Time Temp Pulse Resp B/P (MAP) Pulse Ox O2 Delivery O2 Flow Rate FiO2 10/12/17 12:00 97 Nasal Cannula 2.00 10/12/17 11:00 96 16 121/62 (81) 96 10/12/17 09:00 56 10/12/17 08:00 97 10/12/17 08:00 98.2 97 16 130/63 (85) 97 10/12/17 07:00 98 10/12/17 06:24 50 10/12/17 05:10 63 10/12/17 04:00 98 10/12/17 03:00 98.3 104 142/92 (109) 100 10/12/17 03:00 102 10/12/17 02:00 102 10/12/17 01:00 98 10/12/17 00:00 102 10/11/17 23:53 102 10/11/17 23:13 98.1 107 148/82 (104) 97 10/11/17 23:00 108 12 160/80 (106) 98 Nasal Cannula 3 10/11/17 22:45 98.3 108 12 152/76 (101) 99 Nasal Cannula 3 10/11/17 22:30 64 15 160/67 (98) 98 Nasal Cannula 3 10/11/17 22:15 62 9 177/97 (123) 98 Nasal Cannula 3 10/11/17 22:00 63 16 162/74 (103) 98 Nasal Cannula 3 10/11/17 21:45 62 14 186/81 (116) 99 Nasal Cannula 3 10/11/17 21:30 65 11 162/79 (106) 100 Nasal Cannula 3 10/11/17 21:16 98.3 75 10 164/69 (100) 97 Nasal Cannula 3 10/11/17 19:50 90 Nasal Cannula 2.5 10/11/17 19:00 98.9 113 15 153/75 (101) 92 10/11/17 18:54 97.8 78 16 150/86 (107) 98 10/11/17 17:16 17 10/11/17 15:58 97.8 100 17 170/83 (112) 98 Room Air 10/11/17 13:40 98 17 98 Room Air 10/11/17 13:35 97.8 100 17 172/86 (114) 98 Physical Exam GENERAL: This is a well-nourished, well-developed patient, in no apparent distress. SKIN: No rashes, ecchymoses or lesions. Cool and dry. HEAD: Atraumatic. Normocephalic. No temporal or scalp tenderness. EYES: Pupils equal round and reactive. Extraocular motions intact. No scleral icterus. No injection or drainage. ENT: Nose without bleeding, purulent drainage or septal hematoma. Throat without erythema, tonsillar hypertrophy or exudate. Uvula midline. Airway patent. NECK: Trachea midline. No JVD or lymphadenopathy. Supple, nontender, no meningeal signs. CARDIOVASCULAR: Regular rate and rhythm without murmurs, gallops, or rubs. RESPIRATORY: Clear to auscultation. Breath sounds equal bilaterally. No wheezes , rales, or rhonchi. GASTROINTESTINAL: Abdomen soft, non-tender, nondistended. No hepato-splenomegaly , or palpable masses. No guarding. MUSCULOSKELETAL: Extremities without clubbing, cyanosis, or edema. Surgical bandage over the right hip. No signs of bleeding through the bandage. Tender to palpation over right upper hip musculature. No calf tenderness. Negative Homans sign bilaterally. NEUROLOGICAL: Awake and alert. Cranial nerves II through XII intact. Motor and sensory grossly within normal limits. Five out of 5 muscle strength in all muscle groups. Normal speech. Laboratory Laboratory Tests Test 10/11/17 16:35 10/11/17 22:33 10/12/17 04:43 White Blood Count 10.1 10.7 Red Blood Count 4.28 3.53 Hemoglobin 13.2 10.9 Hematocrit 40.1 32.6 Mean Corpuscular Volume 93.7 92.2 Mean Corpuscular Hemoglobin 30.9 30.9 Mean Corpuscular Hemoglobin Concent 33.0 33.5 Red Cell Distribution Width 13.1 13.1 Platelet Count 258 193 Mean Platelet Volume 9.6 8.7 Neutrophils (%) (Auto) 81.5 Lymphocytes (%) (Auto) 12.3 Monocytes (%) (Auto) 4.8 Eosinophils (%) (Auto) 0.9 Basophils (%) (Auto) 0.5 Neutrophils # (Auto) 8.2 Lymphocytes # (Auto) 1.2 Monocytes # (Auto) 0.5 Eosinophils # (Auto) 0.1 Basophils # (Auto) 0.0 CBC Comment DIFF FINAL Differential Comment Prothrombin Time 10.5 Prothromb Time International Ratio 1.0 Activated Partial Thromboplast Time 24.8 Blood Urea Nitrogen 9 8 Creatinine 0.74 0.68 Random Glucose 114 125 Total Protein 7.2 Albumin 3.7 Calcium Level 9.1 7.6 Alkaline Phosphatase 93 Aspartate Amino Transf (AST/SGOT) 32 Alanine Aminotransferase (ALT/SGPT) 18 Total Bilirubin 0.5 Sodium Level 137 139 Potassium Level 4.9 3.9 Chloride Level 103 104 Carbon Dioxide Level 26.7 28.2 Anion Gap 7 7 Estimat Glomerular Filtration Rate 78 86 Total Creatine Kinase 183 236 Creatine Kinase MB 2.8 3.7 Troponin I 0.04 0.03 Creatine Kinase MB % 1.6 Result Diagram: 10/12/1744210/12/17442 Imaging Last 24 hours Impressions Hip and Pelvis X-Ray 10/11/17 6337 Signed Impressions: Service Date/Time: Wednesday, October 11, 2017 15:32 - CONCLUSION: 1. Moderately angulated intratrochanteric fracture of the right hip. MD Kasia Garcia VTE Risk Assessment Kasia VTE Risk Assessment: Mod/High Risk (score >= 2) Caprini Risk Assessment Model Point Value = 1 Point Value = 2 Point Value = 3 Point Value = 5 Age 41-60 Minor surgery BMI > 25 kg/m2 Swollen legs Varicose veins or History of unexplained or recurrent spontaneous Oral contraceptives or hormone replacement Sepsis (< 1 month) Serious lung disease, including pneumonia (< 1 month) Abnormal pulmonary function Acute myocardial infarction Congestive heart failure (< 1 month) History of inflammatory bowel disease Medical patient at bed rest Age 61-74 Arthroscopic surgery Major open surgery (> 45 min) Laparoscopic surgery (> 45 min) Malignancy Confined to bed (> 72 hours) Immobilizing plaster cast Central venous access Age >= 75 History of VTE Family history of VTE Factor V Leiden Prothrombin [id number] Lupus anticoagulant Anticardiolipin antibodies Elevated serum homocysteine Heparin-induced thrombocytopenia Other congenital or acquired thrombophilia Stroke (< 1 month) Elective arthroplasty Hip, pelvis, or leg fracture Acute spinal cord injury (< 1 month) Prophylaxis Regimen Total Risk Factor Score Risk Level Prophylaxis Regimen 0-1 Low Early ambulation 2 Moderate Order ONE of the following: *Sequential Compression Device (SCD) *Heparin 5000 units SQ BID 3-4 Higher Order ONE of the following medications: *Heparin 5000 units SQ TID *Enoxaparin/Lovenox 40 mg SQ daily (WT < 150 kg, CrCl > 30 mL/min) *Enoxaparin/Lovenox 30 mg SQ daily (WT < 150 kg, CrCl > 10-29 mL/min) *Enoxaparin/Lovenox 30 mg SQ BID (WT < 150 kg, CrCl > 30 mL/min) AND/OR *Sequential Compression Device (SCD) 5 or more Highest Order ONE of the following medications: *Heparin 5000 units SQ TID (Preferred with Epidurals) *Enoxaparin/Lovenox 40 mg SQ daily (WT < 150 kg, CrCl > 30 mL/min) *Enoxaparin/Lovenox 30 mg SQ daily (WT < 150 kg, CrCl > 10-29 mL/min) *Enoxaparin/Lovenox 30 mg SQ BID (WT < 150 kg, CrCl > 30 mL/min) AND *Sequential Compression Device (SCD) Assessment and Plan Assessment and Plan 67-year-old female with no reported past history was admitted for a right intertrochanteric fracture. To be seen, evaluated by orthopedic surgery. Likely surgery 10/11/17. Problem List: (1) Closed fracture of intertrochanteric section of femur ICD Codes: S72.143A - Displaced intertrochanteric fracture of unspecified femur , initial encounter for closed fracture Plan: Patient underwent surgical intervention. Seems to have good results with the procedure. She has been placed on DVT prophylaxis. It seems that she did have some EKG changes during and after surgical intervention. She has been evaluated by cardiology. Appreciate their input. I will check the patient's hemoglobin A1c today. She did have some elevated blood pressure readings at the time of discomfort and surgery. It seems that her blood pressure have improved. We'll continue to monitor the patient. Overall seems that her pain is also well controlled. Spoke to her length about her condition. Patient was in good spirits. Continue to monitor her H&H. (2) FEN Plan: Fluids: Maintenance fluids, Electrolytes: Monitor and replace is needed Nutrition: Diet Prophylaxis: Lovenox Parts of this note were created using [employer] voice recognition software program. While efforts were made to correct any mistakes made by this software, some mistakes, errors, and omissions may remain in the final note that were not caught when the note was originally created. Plan of care was discussed and agreed upon with the patient as specifically documented in the above note. An opportunity to ask questions with explanation was provided. Patient voiced understanding on all information reviewed and discussed. Physician Certification 2 Midnight Certification Type: Admission for Inpatient Services Order for Inpatient Services The services are ordered in accordance with Medicare regulations or non- Medicare payer requirements, as applicable. In the case of services not specified as inpatient-only, they are appropriately provided as inpatient services in accordance with the 2-midnight benchmark. Estimated LOS (days): 2 days is the estimated time the patient will need to remain in the hospital, assuming treatment plan goals are met and no additional complications. Post-Hospital Plan: SNF David Vee MD Oct 12, 2017 12:43
[2017-10-12 15:22] LABS: TROPONIN I 0.02 NG/ML (0.02-0.05)
[2017-10-12 15:48] LABS: HEMOGLOBIN A1C 5.8 % (4.3-6.0)
[2017-10-12] MEDS: ENOXAPARIN SODIUM 40 MG/0.4 ML SYRINGE SQ SCH (20:20)
[2017-10-12] MEDS: MORPHINE SULFATE 2 MG/ML INJ IV PUSH PRN (23:06)
[2017-10-13 00:20] VITALS: BP 160/97; PULSE 109; RESP 18; TEMP 99.1; O2SAT 93
[2017-10-13] MEDS: MORPHINE SULFATE 2 MG/ML INJ IV PUSH PRN (03:30)
[2017-10-13 04:05] VITALS: BP 151/89; PULSE 104; RESP 18; TEMP 97.4; O2SAT 93
[2017-10-13 07:38] LABS: HEMATOCRIT 32.2 % (35.0-46.0); MEAN CELL VOLUME 92.9 FL (80.0-100.0); MEAN CORPUSCULAR HEMOGLOBIN 31.6 PG (27.0-34.0); MEAN PLATELET VOLUME 9.3 FL (7.0-11.0); PLATELET COUNT 167 TH/MM3 (150-450); RED BLOOD COUNT 3.47 MIL/MM3 (4.00-5.30); WHITE BLOOD COUNT 11.3 TH/MM3 (4.0-11.0)
[2017-10-13 08:00] VITALS: BP 146/77; PULSE 112; RESP 20; TEMP 100; O2SAT 93
[2017-10-13 08:09] LABS: BICARBONATE 29.3 MEQ/L (21.0-32.0); CALCIUM 8.1 MG/DL (8.5-10.1); CREATININE 0.61 MG/DL (0.50-1.00)
[2017-10-13] MEDS: SODIUM CHLORIDE 0.9% FLUSH 10 ML FLUSH IV FLUSH SCH ×2 (09:00→20:54)
--- NOTE | 2017-10-13 10:21 | PD.ORT.PN ---
Subjective Post Op Day #: 2 Subjective Remarks patient off floor during rounds. labs, vitals and notes reviewed. Objective Vitals Vital Signs Date Time Temp Pulse Resp B/P (MAP) Pulse Ox O2 Delivery O2 Flow Rate FiO2 10/13/17 04:05 97.4 104 18 151/89 (109) 93 10/13/17 00:20 99.1 109 18 160/97 (118) 93 10/12/17 20:40 98.3 108 17 157/81 (106) 94 10/12/17 16:30 99.7 100 17 137/74 (95) 96 10/12/17 15:00 98.3 82 18 154/86 (108) 99 10/12/17 15:00 103 10/12/17 12:00 97 Nasal Cannula 2.00 10/12/17 11:00 96 16 121/62 (81) 96 I/O 10/12/17 10/12/17 10/12/17 10/13/17 10/13/17 10/13/17 07:00 15:00 23:00 07:00 15:00 23:00 Intake Total 240 ml 2851 ml 240 ml Output Total 250 ml 3050 ml 500 ml Balance -10 ml -199 ml -260 ml Intake Oral 240 ml 960 ml 240 ml IV Total 1891 ml Output Urine Total 250 ml 3050 ml 500 ml # Bowel Movements 0 0 Result Diagram: 10/13/17 0709 10/13/17 0709 Imaging Last 24 hours Impressions Hip and Pelvis X-Ray 10/11/17 1447 Signed Impressions: Service Date/Time: Wednesday, October 11, 2017 15:32 - CONCLUSION: 1. Moderately angulated intratrochanteric fracture of the right hip. Iglesia Cabezas MD Objective Remarks patient off floor during rounds, getting CXR. labs, vitals and notes reviewed. Assessment & Plan Ortho Post Op Day #: 2 Problem List: Assessment and Plan s/p R Troch Nail 50% PWB daily dressing changes lovenox post-op abnormal EKG, was evaluated by cardiology. no further work-up at this time. med management d/c planning to snf f/up dr. pappas 2 weeks Darryn Beebe Oct 13, 2017 10:21
--- NOTE | 2017-10-13 10:48 | ECHRPT ---
Indication: CONCLUSIONS The left ventricular systolic function is dmilrhps-[id number] reduced with an estimated ejection fra ction in the range of 35-40%. Normal left ventricular size. Wall thickness is normal. There is global left ventricular dysfunction. Trace mitral valve regurgitation. There is trace tricuspid valve regurgitation. There is estimated mild pulmonary hypertension present (range 40-50 mmHg). Trivial pulmonary valve regurgitation. BP: / HR: Rhythm: Other MEASUREMENTS (Male / Female) Normal Values Technical Quality:Good 2D ECHO LV Diastolic Diameter PLAX 3.3 cm 4.2 - 5.9 / 3.9 - 5.3 cm LV Systolic Diameter PLAX 2.8 cm IVS Diastolic Thickness 1.1 cm 0.6 - 1.0 / 0.6 - 0.9 cm LVPW Diastolic Thickness 1.1 cm 0.6 - 1.0 / 0.6 - 0.9 cm LV Relative Wall Thickness 0.7 LVOT Diameter 1.8 cm LA Systolic Diameter LX 2.7 cm 3.0 - 4.0 / 2.7 - 3.8 cm LV Ejection Fraction MOD BP 33.3 % >= 55 % LV Ejection Fraction MOD 4C 34.4 % LV Ejection Fraction 4C AL 33.1 % LV Ejection Fraction MOD 2C 33.8 % LV Ejection Fraction 2C AL 35.4 % M-MODE Aortic Root Diameter MM 3.1 cm AV Cusp Separation MM 1.3 cm DOPPLER AV Peak Velocity 156.0 cm/s AV Peak Gradient 9.7 mmHg LVOT Peak Velocity 108.0 cm/s LVOT Peak Gradient 4.7 mmHg AV Area Cont Eq pk 1.8 cm MV Area PHT 2.8 cm Mitral E Point Velocity 60.8 cm/s Mitral A Point Velocity 54.3 cm/s Mitral E to A Ratio 1.1 LV E' Lateral Velocity 11.8 cm/s Mitral E to LV E' Lateral Ratio 5.1 LV E' Septal Velocity 8.8 cm/s Mitral E to LV E' Septal Ratio 6.9 TR Peak Velocity 301.0 cm/s TR Peak Gradient 36.2 mmHg Right Atrial Pressure 10.0 mmHg Pulmonary Artery Systolic Pressu 46.2 mmHg Right Ventricular Systolic Press 46.2 mmHg PV Peak Velocity 133.0 cm/s PV Peak Gradient 7.1 mmHg FINDINGS LEFT VENTRICLE The left ventricular systolic function is tbebjwsl-ji-wdyqckl reduced with an estimated ejection fra ction in the range of 35-40%. Normal left ventricular size. Wall thickness is normal. There is global left ventricular dysfunction. RIGHT VENTRICLE Normal right ventricular size and systolic function. LEFT ATRIUM The left atrial size is normal. RIGHT ATRIUM The right atrial size is normal. ATRIAL SEPTUM Normal atrial septal thickness without atrial level shunting by limited color doppler interrogation. AORTA The aortic root and proximal ascending aorta are normal in size on limited imaging. MITRAL VALVE Structurally normal mitral valve. Trace mitral valve regurgitation. AORTIC VALVE Trileaflet aortic valve. No aortic valve stenosis or regurgitation. TRICUSPID VALVE Structurally normal tricuspid valve. There is trace tricuspid valve regurgitation. There is estimated mild pulmonary hypertension present (range 40-50 mmHg). PULMONARY VALVE Trivial pulmonary valve regurgitation. VESSELS The inferior vena cava is normal in size. PERICARDIUM No pericardial effusion. Pepe Dejesus MD (Electronically Signed) Final Date:13 October 2017 10:48
[2017-10-13] MEDS: MULTIVITAMINS/MINERALS THERAPEUTIC TAB PO SCH (10:53)
[2017-10-13] MEDS: DOCUSATE SODIUM 50 MG/SENNA 8.6 MG TAB PO SCH ×2 (10:53→20:54)
[2017-10-13] MEDS: ACETAMINOPHEN/HYDROcodone 325 MG/7.5 MG TAB PO PRN ×2 (10:53→18:27)
--- NOTE | 2017-10-13 11:29 | RADRPT ---
EXAM DATE/TIME: 10/13/2017 10:12 [facility] COMPARISON: No previous studies available for comparison. INDICATIONS : Coughing 2days post hip surgery MEDICAL HISTORY : hip fracture SURGICAL HISTORY : Umbilical hernia repair. hip replaced ENCOUNTER: Subsequent ACUITY: 2 days PAIN SCORE: 0/10 LOCATION: Bilateral chest FINDINGS: The cardiac silhouette is enlarged in transverse diameter. The lungs are free of acute parenchymal op acity. No effusions are identified. The aortic knob is prominent with tortuosity of the descending th oracic aorta. CONCLUSION: 1. Cardiomegaly. No acute pulmonary disease. Harshil Bunch MD on October 13, 2017 at 11:26 Board Certified Radiologist. This report was verified electronically.
[2017-10-13 11:30] LABS: BACTERIA, URINE OCC /hpf; BILIRUBIN, URINE NEG (NEG); BLOOD, URINE NEG (NEG); GLUCOSE,URINE NEG (NEG); KETONE, URINE 40 mg/dL (NEG); MUCUS URINE FEW /lpf (OCC); NITRITE,URINE NEG (NEG); SQUAMOUS EPITHELIAL CELL URINE 2 /hpf (0-5); URINE COLOR YELLOW (YELLW/STRAW); URINE LEUKOCYTE ESTERASE NEG (NEG)
[2017-10-13 12:00] VITALS: BP 134/83; PULSE 108; RESP 20; TEMP 98.2; O2SAT 91
[2017-10-13] MEDS: DEXT 5%-NACL 0.45% 1000 ML INJ 1,000 ML IV SCH ×2 (12:58→22:58)
[2017-10-13] MEDS ORDERED: RESP: ALBUTEROL 2.5 MG/IPRATROPIUM 0.5 MG NEB (PRN) NEB (13:15)
--- NOTE | 2017-10-13 15:40 | HHI.FPPN ---
Subjective Remarks Patient seen and examined this morning. Pt reports subjective fevers overnight. No nausea/vomiting. No difficulty breathing or SOB. Pain controlled. Denies any chest pain, abdominal pain. (Jean Dyer MD, R2) Objective Vitals Vital Signs Date Time Temp Pulse Resp B/P (MAP) Pulse Ox O2 Delivery O2 Flow Rate FiO2 10/13/17 12:00 98.2 108 20 134/83 (100) 91 10/13/17 08:00 100.0 112 20 146/77 (100) 93 10/13/17 04:05 97.4 104 18 151/89 (109) 93 10/13/17 00:20 99.1 109 18 160/97 (118) 93 10/12/17 20:40 98.3 108 17 157/81 (106) 94 10/12/17 16:30 99.7 100 17 137/74 (95) 96 I/O 10/12/17 10/12/17 10/12/17 10/13/17 10/13/17 10/13/17 06:59 14:59 22:59 06:59 14:59 22:59 Intake Total 240 ml 2851 ml 240 ml Output Total 250 ml 3050 ml 500 ml Balance -10 ml -199 ml -260 ml Intake Oral 240 ml 960 ml 240 ml IV Total 1891 ml Output Urine Total 250 ml 3050 ml 500 ml # Bowel Movements 0 0 (Jean Dyer MD, R2) Result Diagram: 10/13/17 0709 10/13/17 0709 Imaging Last Impressions Chest X-Ray 10/13/17 0000 Signed Impressions: Service Date/Time: Friday, October 13, 2017 10:12 - CONCLUSION: 1. Cardiomegaly. No acute pulmonary disease. Harshil Bunch MD Hip and Pelvis X-Ray 10/11/17 1447 Signed Impressions: Service Date/Time: Wednesday, October 11, 2017 15:32 - CONCLUSION: 1. Moderately angulated intratrochanteric fracture of the right hip. Iglesia Cabezas MD Hip X-Ray 10/11/17 0000 Signed Impressions: Service Date/Time: Wednesday, October 11, 2017 20:47 - CONCLUSION: Intact postsurgical changes. K. Sudarshan Lemhan MD Objective Remarks GENERAL: lying in bed, NAD. SKIN: Warm and dry. CARDIOVASCULAR: Regular rate and rhythm. RESPIRATORY: No accessory muscle use. Decreased breath sounds in bases. GASTROINTESTINAL: Abdomen soft, non-tender, nondistended. MUSCULOSKELETAL: Extremities without clubbing, cyanosis, or edema. Pulses and sensation intact. Bandage over right hip, c/d/i NEUROLOGICAL: Awake and alert. No obvious cranial nerve deficits. Normal speech. PSYCHIATRIC: Appropriate mood and affect; insight and judgment normal. (Jean Dyer MD, R2) A/P Assessment and Plan 67-year-old female with no reported past history was admitted for a right intertrochanteric fracture. To be seen, evaluated by orthopedic surgery. Likely surgery 10/11/17. Discharge Planning Pending workup and will be d/c to [facility] (Jean Dyer MD, R2) Problem List: (1) Closed fracture of intertrochanteric section of femur ICD Codes: S72.143A - Displaced intertrochanteric fracture of unspecified femur , initial encounter for closed fracture Status: Acute Plan: Close fracture of intertrochanteric right femur. POD#2 from R troch nail -Ortho managing -50% PWB -Daily dressing changes -[place] when necessary for pain -Counseled on the importance of having a primary care provider, possibility of osteoporosis, need for outpatient follow-up -CXR, UA, blood cultures ordered today to rule out post-op infection -CXR negative. UA negative. Await blood cultures and monitor vitals -[facility] tomorrow if remains stable (2) Abnormal EKG ICD Codes: R94.31 - Abnormal electrocardiogram [ECG] [EKG] Status: Acute Plan: EKG changes post-op Cardiology consulted -No further workup at this time -Echo: EF 35-40% (3) FEN Plan: Fluids: Maintenance fluids Electrolytes: Monitor and replace is needed Nutrition: regular diet Prophylaxis: lovenox daily (Jean Dyer MD, R2) Problem List: (1) Closed fracture of intertrochanteric section of femur ICD Codes: S72.143A - Displaced intertrochanteric fracture of unspecified femur , initial encounter for closed fracture Status: Acute Plan: Close fracture of intertrochanteric right femur. POD#2 from R troch nail -Ortho managing -50% PWB -Daily dressing changes -[place] when necessary for pain -Counseled on the importance of having a primary care provider, possibility of osteoporosis, need for outpatient follow-up -CXR, UA, blood cultures ordered today to rule out post-op infection -CXR negative. UA negative. Await blood cultures and monitor vitals -[facility] tomorrow if remains stable (2) Abnormal EKG ICD Codes: R94.31 - Abnormal electrocardiogram [ECG] [EKG] Status: Acute Plan: EKG changes post-op Cardiology consulted -No further workup at this time -Echo: EF 35-40% (3) FEN Plan: Fluids: Maintenance fluids Electrolytes: Monitor and replace is needed Nutrition: regular diet Prophylaxis: lovenox daily See the residents documentation for details. I saw and evaluated the patient regarding the jolley portions of this evaluation and agree with the residents findings and plans as written. Parts of this note were created using [employer] voice recognition software program. While efforts were made to correct any mistakes made by this software, some mistakes, errors, and omissions may remain in the final note that were not caught when the note was originally created. Plan of care was discussed and agreed upon with the patient as specifically documented in the above note. An opportunity to ask questions with explanation was provided. Patient voiced understanding on all information reviewed and discussed. (David Vee MD) Jean Dyer MD, R2 Oct 13, 2017 15:40 David Vee MD Oct 14, 2017 10:14
[2017-10-13 16:00] VITALS: BP_SYST 142; BP_SYST 98; BP_DIAS 63; BP_DIAS 78; PULSE 106; PULSE 92; RESP 18; RESP 20; TEMP 98.2; TEMP 98.9; O2SAT 96; O2SAT 98
--- NOTE | 2017-10-13 19:17 | EKG ---
Date Performed: 10/12/2017 Time Performed: 07:29:44 PTAGE: 67 years EKG: Atrial fibrillation with FVR Anterior T wave changes are nonspecific Borderline ECG PREVIOUS TRACING : 10/11/2017 22.07 DOCTOR: Brock Hardy Interpretating Date/Time 10/13/2017 19:15:41
[2017-10-13 20:00] VITALS: BP 122/69; PULSE 116; RESP 15; TEMP 98.7; O2SAT 94
[2017-10-13] MEDS: ENOXAPARIN SODIUM 40 MG/0.4 ML SYRINGE SQ SCH (20:54)
--- NOTE | 2017-10-13 23:28 | EKG ---
Date Performed: 10/11/2017 Time Performed: 22:07:58 PTAGE: 67 years EKG: Sinus rhythm MODERATE T-WAVE ABNORMALITY, CONSIDER ANTERIOR ISCHEMIA ABNORMAL ECG PREVIOUS TRACING : 10/11/2017 16.44 DOCTOR: Brock Hardy Interpretating Date/Time 10/13/2017 23:27:00
--- NOTE | 2017-10-13 23:42 | EKG ---
Date Performed: 10/11/2017 Time Performed: 16:44:19 PTAGE: 67 years EKG: SINUS TACHYCARDIA NONSPECIFIC T-WAVE ABNORMALITY ABNORMAL RHYTHM ECG NO PREVIOUS TRACING DOCTOR: Brock Hardy Interpretating Date/Time 10/13/2017 23:40:42
[2017-10-14 00:30] VITALS: BP 146/84; PULSE 109; RESP 16; TEMP 98.8; O2SAT 95
--- NOTE | 2017-10-14 06:55 | PD.ORT.PN ---
Subjective Subjective Remarks POD 3 s/p IMN right hip by Dr Davison doing well. reports stiffness in hip. states has not had a BM yet Objective Vitals Vital Signs Date Time Temp Pulse Resp B/P (MAP) Pulse Ox O2 Delivery O2 Flow Rate FiO2 10/14/17 00:30 98.8 109 16 146/84 (104) 95 10/13/17 20:00 98.7 116 15 122/69 (86) 94 10/13/17 16:00 98.9 92 18 98/63 (75) 98 10/13/17 16:00 98.2 106 20 142/78 (99) 96 10/13/17 12:00 98.2 108 20 134/83 (100) 91 10/13/17 08:00 100.0 112 20 146/77 (100) 93 I/O 10/13/17 10/13/17 10/13/17 10/14/17 10/14/17 10/14/17 07:00 15:00 23:00 07:00 15:00 23:00 Intake Total 240 ml 820 ml 240 ml Output Total 500 ml Balance -260 ml 820 ml 240 ml Intake Oral 240 ml 820 ml 240 ml Output Urine Total 500 ml # Voids 4 3 # Bowel Movements 0 0 0 Result Diagram: 10/13/17 0709 10/13/17 0709 Imaging Last 24 hours Impressions Hip and Pelvis X-Ray 10/11/17 1447 Signed Impressions: Service Date/Time: Wednesday, October 11, 2017 15:32 - CONCLUSION: 1. Moderately angulated intratrochanteric fracture of the right hip. Iglesia Cabezas MD Objective Remarks RLE: dressings clean and dry. intact. NVI Assessment & Plan Assessment and Plan s/p R Troch Nail 50% PWB daily dressing changes lovenox post-op abnormal EKG, was evaluated by cardiology. no further work-up at this time. med management d/c planning to snf f/up dr. davison 2 weeks Domingo Huynh/[employer] [place] Oct 14, 2017 06:54
[2017-10-14 07:19] VITALS: BP 122/83; PULSE 111; RESP 17; TEMP 98.1; O2SAT 95
[2017-10-14 07:21] LABS: AUTOMATED NEUTROPHIL # 7.8 TH/MM3 (1.8-7.7); BASOPHIL # 0.1 TH/MM3 (0-0.2); BASOPHIL % 0.6 % (0.0-2.0); EOSINOPHIL # 0.2 TH/MM3 (0-0.4); EOSINOPHIL % 1.6 % (0.0-4.0); HEMATOCRIT 29.7 % (35.0-46.0); LYMPH % 14.9 % (9.0-44.0); LYMPHOCYTE # 1.5 TH/MM3 (1.0-4.8); MEAN CORPUSCULAR HEMOGLOBIN 30.9 PG (27.0-34.0); MEAN CORPUSCULAR HGB CONC 33.6 % (32.0-36.0); MEAN PLATELET VOLUME 9.7 FL (7.0-11.0); MONO % 7.3 % (0.0-8.0); MONOCYTE # 0.7 TH/MM3 (0-0.9); NEUT % 75.6 % (16.0-70.0); PLATELET COUNT 136 TH/MM3 (150-450); RED BLOOD COUNT 3.23 MIL/MM3 (4.00-5.30); RED CELL DISTRIBUTION WIDTH 12.9 % (11.6-17.2); WHITE BLOOD COUNT 10.3 TH/MM3 (4.0-11.0)
[2017-10-14 07:52] LABS: BICARBONATE 26.8 MEQ/L (21.0-32.0); CALCIUM 8.2 MG/DL (8.5-10.1); CREATININE 0.58 MG/DL (0.50-1.00)
[2017-10-14] MEDS: DOCUSATE SODIUM 50 MG/SENNA 8.6 MG TAB PO SCH (07:52)
[2017-10-14] MEDS: MULTIVITAMINS/MINERALS THERAPEUTIC TAB PO SCH (07:52)
[2017-10-14] MEDS: SODIUM CHLORIDE 0.9% FLUSH 10 ML FLUSH IV FLUSH SCH (07:54)
--- NOTE | 2017-10-14 08:30 | HHI.FPPN ---
Objective Vitals Vital Signs Date Time Temp Pulse Resp B/P (MAP) Pulse Ox O2 Delivery O2 Flow Rate FiO2 10/14/17 00:30 98.8 109 16 146/84 (104) 95 10/13/17 20:00 98.7 116 15 122/69 (86) 94 10/13/17 16:00 98.9 92 18 98/63 (75) 98 10/13/17 16:00 98.2 106 20 142/78 (99) 96 10/13/17 12:00 98.2 108 20 134/83 (100) 91 I/O 10/13/17 10/13/17 10/13/17 10/14/17 10/14/17 10/14/17 07:00 15:00 23:00 07:00 15:00 23:00 Intake Total 240 ml 820 ml 240 ml 480 ml Output Total 500 ml Balance -260 ml 820 ml 240 ml 480 ml Intake Oral 240 ml 820 ml 240 ml 480 ml Output Urine Total 500 ml # Voids 4 3 3 # Bowel Movements 0 0 0 0 Result Diagram: 10/14/17 0520 10/14/17 0520 Objective Remarks GENERAL: lying in bed, NAD. SKIN: Warm and dry. CARDIOVASCULAR: Regular rate and rhythm. RESPIRATORY: No accessory muscle use. Decreased breath sounds in bases. GASTROINTESTINAL: Abdomen soft, non-tender, nondistended. MUSCULOSKELETAL: Extremities without clubbing, cyanosis, or edema. Pulses and sensation intact. Bandage over right hip, c/d/i NEUROLOGICAL: Awake and alert. No obvious cranial nerve deficits. Normal speech. PSYCHIATRIC: Appropriate mood and affect; insight and judgment normal. A/P Assessment and Plan 67-year-old female with no reported past history was admitted for a right intertrochanteric fracture. To be seen, evaluated by orthopedic surgery. Likely surgery 10/11/17. Discharge Planning Pending workup and will be d/c to [place] [facility] Problem List: (1) Closed fracture of intertrochanteric section of femur ICD Codes: S72.143A - Displaced intertrochanteric fracture of unspecified femur , initial encounter for closed fracture Status: Acute Plan: Close fracture of intertrochanteric right femur. POD#2 from R troch nail -Ortho managing -50% PWB -Daily dressing changes -[place] when necessary for pain -Counseled on the importance of having a primary care provider, possibility of osteoporosis, need for outpatient follow-up -CXR, UA, blood cultures ordered today to rule out post-op infection -CXR negative. UA negative. Await blood cultures and monitor vitals -[place] [facility] tomorrow if remains stable (2) Abnormal EKG ICD Codes: R94.31 - Abnormal electrocardiogram [ECG] [EKG] Status: Acute Plan: EKG changes post-op Cardiology consulted -No further workup at this time -Echo: EF 35-40% (3) FEN Plan: Fluids: Maintenance fluids Electrolytes: Monitor and replace is needed Nutrition: regular diet Prophylaxis: lovenox daily Eliu Araya MD R1 Oct 14, 2017 08:30
[2017-10-14] MEDS ORDERED: SENN187 PO (08:31)
--- NOTE | 2017-10-14 08:31 | HHI.DS ---
Discharge Summary Admission Date Oct 11, 2017 at 17:18 Admitting Diagnosis right hip fracture (1) Closed fracture of intertrochanteric section of femur Diagnosis: Principal Plan: Close fracture of intertrochanteric right femur. POD#2 from R troch nail -Ortho managing -50% PWB -Daily dressing changes -[place] when necessary for pain -Counseled on the importance of having a primary care provider, possibility of osteoporosis, need for outpatient follow-up -CXR, UA, blood cultures ordered today to rule out post-op infection -CXR negative. UA negative. Await blood cultures and monitor vitals -[facility] tomorrow if remains stable ICD Codes: S72.143A - Displaced intertrochanteric fracture of unspecified femur , initial encounter for closed fracture Status: Acute (2) Abnormal EKG Diagnosis: Secondary Plan: EKG changes post-op Cardiology consulted -No further workup at this time -Echo: EF 35-40% ICD Codes: R94.31 - Abnormal electrocardiogram [ECG] [EKG] Status: Acute (3) FEN Plan: Fluids: Maintenance fluids Electrolytes: Monitor and replace is needed Nutrition: regular diet Prophylaxis: lovenox daily Brief History Patient was seen and examined at the bedside today. She is feeling well today. She does complain of some very mild right-sided hip pain, but says that has been improving. She denies any issues with shortness of breath, chest pain, or abdominal discomfort. Overall she is doing well. She underwent surgical intervention for her fracture yesterday. She was seen by cardiology today for some EKG changes after surgery. Feels well, is looking forward to starting the rehabilitation process of her healing. No loss of consciousness, headache, head pain, neck pain, change in vision, amnesia, nausea, vomiting. . CBC/BMP: 10/14/17 0520 10/14/17 0520 Significant Findings Laboratory Tests Test 10/11/17 16:35 10/11/17 22:33 10/12/17 04:43 10/12/17 14:40 Neutrophils (%) (Auto) 81.5 % (16.0-70.0) Neutrophils # (Auto) 8.2 TH/MM3 (1.8-7.7) Random Glucose 114 MG/DL (74-106) 125 MG/DL (74-106) Estimat Glomerular Filtration Rate 78 ML/MIN (>89) 86 ML/MIN (>89) Red Blood Count 3.53 MIL/MM3 (4.00-5.30) Hemoglobin 10.9 GM/DL (11.6-15.3) Hematocrit 32.6 % (35.0-46.0) Calcium Level 7.6 MG/DL (8.5-10.1) Total Creatine Kinase 236 U/L (26-192) 241 U/L (26-192) Creatine Kinase MB 3.7 NG/ML (0.5-3.6) Test 10/13/17 07:09 10/13/17 11:05 10/14/17 05:20 White Blood Count 11.3 TH/MM3 (4.0-11.0) Red Blood Count 3.47 MIL/MM3 (4.00-5.30) 3.23 MIL/MM3 (4.00-5.30) Hemoglobin 11.0 GM/DL (11.6-15.3) 10.0 GM/DL (11.6-15.3) Hematocrit 32.2 % (35.0-46.0) 29.7 % (35.0-46.0) Blood Urea Nitrogen 5 MG/DL (7-18) Random Glucose 125 MG/DL (74-106) Calcium Level 8.1 MG/DL (8.5-10.1) 8.2 MG/DL (8.5-10.1) Urine Ketones 40 mg/dL (NEG) Urine Bacteria OCC /hpf (NONE) Urine Mucus FEW /lpf (OCC) Platelet Count 136 TH/MM3 (150-450) Neutrophils (%) (Auto) 75.6 % (16.0-70.0) Neutrophils # (Auto) 7.8 TH/MM3 (1.8-7.7) PE at Discharge GENERAL: lying in bed, NAD. SKIN: Warm and dry. CARDIOVASCULAR: Regular rate and rhythm. RESPIRATORY: No accessory muscle use. Decreased breath sounds in bases. GASTROINTESTINAL: Abdomen soft, non-tender, nondistended. MUSCULOSKELETAL: Extremities without clubbing, cyanosis, or edema. Pulses and sensation intact. Bandage over right hip, c/d/i NEUROLOGICAL: Awake and alert. No obvious cranial nerve deficits. Normal speech. PSYCHIATRIC: Appropriate mood and affect; insight and judgment normal. Hospital Course Patient admitted 10/11/17 for right intratrochanteric fracture. Orthopedic surgery was consulted. Performed intramedullary nailing of the right intertrochanteric hip fracture. Patient had abnormal EKG, cardiology was consulted. No signs or symptoms of cardiac distress. Troponins 0.04 and 0.03. EKG with nonspecific ST-T abnormality, sinus rhythm. No further workup at this time per cardiology. Echocardiogram showed moderate to severely reduced left ventricular systolic function with an EF of 35-40%. Findings were discussed with patient and she agreed to follow-up outpatient. Patient had mild leukocytosis, 11.3 on 10/13/17. Worked up for infectious cause, likely leukemoid reaction. Patient was discharged to [facility]. Pt Condition on Discharge: Stable Discharge Disposition: Discharge to SNF Discharge Instructions DIET: Follow Instructions for: As Tolerated, No Restrictions Activities you can perform: Regular-No Restrictions (With assistance) Follow up Referrals: Orthopedics - 2 Weeks @ [facility] with Darryn Davison MD PCP Follow-up - 1 Week New Medications: Aspirin (Aspirin Low Dose) 81 Mg Chew 81 MG CHEW BID for Prevent Blood Clot for 30 Days, #60 TAB 0 Refills Enoxaparin Inj (Lovenox Inj) 40 Mg/0.4 Ml Syr 40 MG SQ DAILY for Blood Clot Prevention, #7 SYRINGE 0 Refills Hydrocodone-Acetaminophen ([place]) 7.5-325 mg Tab 1-2 TAB PO Q6H PRN for PAIN, #90 TAB 0 Refills Sennosides (Senna-Lax) 8.6 Mg Tab 17.2 MG PO Q12H PRN for Moderate constipation, #30 TAB Eliu Araya MD R1 Oct 14, 2017 08:31
--- NOTE | 2017-10-14 08:31 | HHI.DCPOC ---
Discharge Care Plan Diagnosis: (1) Hip fracture Goals to Promote Your Health * To prevent worsening of your condition and complications * To maintain your health at the optimal level Directions to Meet Your Goals Take your medications as prescribed Follow your dietary instruction Follow activity as directed Keep your appointments as scheduled Take your immunizations and boosters as scheduled If your symptoms worsen call your PCP, if no PCP go to Urgent Care Center or Emergency Room Smoking is Dangerous to Your Health. Avoid second hand smoke Call the 24-hour hour crisis hotline for domestic abuse at Eliu Araya MD R1 Oct 14, 2017 08:31
--- NOTE | 2017-10-14 10:16 | HHI.FPPN ---
Subjective Remarks Patient seen and examined this morning. States she continues to have some pain and stiffness in her hip however it is improved today. Reports she has not had a bowel movement yet, however typically she only has one bowel movement every 2- 3 days, she has been passing gas. No nausea, vomiting, fever, chills, abdominal pain, chest pain, shortness of breath. No other complaints today. Echocardiogram findings were discussed including her decreased ejection fraction and the fact that she has congestive heart failure. It was stressed that she needed to follow up with a primary care physician following discharge from the hospital. She expressed understanding and agreed. (Eliu Araya MD R1) Objective Vitals Vital Signs Date Time Temp Pulse Resp B/P (MAP) Pulse Ox O2 Delivery O2 Flow Rate FiO2 10/14/17 07:19 98.1 111 17 122/83 (96) 95 10/14/17 00:30 98.8 109 16 146/84 (104) 95 10/13/17 20:00 98.7 116 15 122/69 (86) 94 10/13/17 16:00 98.9 92 18 98/63 (75) 98 10/13/17 16:00 98.2 106 20 142/78 (99) 96 10/13/17 12:00 98.2 108 20 134/83 (100) 91 I/O 10/13/17 10/13/17 10/13/17 10/14/17 10/14/17 10/14/17 07:00 15:00 23:00 07:00 15:00 23:00 Intake Total 240 ml 820 ml 240 ml 480 ml Output Total 500 ml Balance -260 ml 820 ml 240 ml 480 ml Intake Oral 240 ml 820 ml 240 ml 480 ml Output Urine Total 500 ml # Voids 4 3 3 # Bowel Movements 0 0 0 0 (Elui Araya MD R1) Result Diagram: 10/14/17 0520 10/14/17 0520 Imaging Last 48 hours Impressions Chest X-Ray 10/13/17 0000 Signed Impressions: Service Date/Time: Friday, October 13, 2017 10:12 - CONCLUSION: 1. Cardiomegaly. No acute pulmonary disease. Harshil Bunch MD Objective Remarks GENERAL: lying in bed, NAD. SKIN: Warm and dry. CARDIOVASCULAR: Regular rate and rhythm. RESPIRATORY: No accessory muscle use. Decreased breath sounds in bases. GASTROINTESTINAL: Abdomen soft, non-tender, nondistended. MUSCULOSKELETAL: Extremities without clubbing, cyanosis, or edema. Pulses and sensation intact. Bandage over right hip, c/d/i NEUROLOGICAL: Awake and alert. No obvious cranial nerve deficits. Normal speech. PSYCHIATRIC: Appropriate mood and affect; insight and judgment normal. Procedures Orthopedic repair of intratrochanteric fracture 10/11/17 (Eliu Araya MD R1) A/P Assessment and Plan 67-year-old female with no reported past history was admitted for a right intertrochanteric fracture. To be seen, evaluated by orthopedic surgery. Likely surgery 10/11/17. Discharge Planning Discharge today (Eliu Araya MD R1) Problem List: (1) Closed fracture of intertrochanteric section of femur ICD Codes: S72.143A - Displaced intertrochanteric fracture of unspecified femur , initial encounter for closed fracture Status: Acute Plan: Close fracture of intertrochanteric right femur. POD#2 from R troch nail -Ortho managing -50% PWB -Daily dressing changes -[place] when necessary for pain -Counseled on the importance of having a primary care provider, possibility of osteoporosis, need for outpatient follow-up -CXR, UA, blood cultures ordered today to rule out post-op infection -CXR negative. UA negative. (2) Abnormal EKG ICD Codes: R94.31 - Abnormal electrocardiogram [ECG] [EKG] Status: Acute Plan: EKG changes post-op Cardiology consulted -No further workup at this time -Echo: EF 35-40%, CHF was discussed with the patient, patient expressed understanding and agreed to follow up with outpatient primary care provider. (3) FEN Plan: Fluids: Maintenance fluids Electrolytes: Monitor and replace is needed Nutrition: regular diet Prophylaxis: lovenox daily (Eliu Araya MD R1) Problem List: (1) Closed fracture of intertrochanteric section of femur ICD Codes: S72.143A - Displaced intertrochanteric fracture of unspecified femur , initial encounter for closed fracture Status: Acute Plan: Close fracture of intertrochanteric right femur. POD#2 from R troch nail -Ortho managing -50% PWB -Daily dressing changes -[place] when necessary for pain -Counseled on the importance of having a primary care provider, possibility of osteoporosis, need for outpatient follow-up -CXR, UA, blood cultures ordered today to rule out post-op infection -CXR negative. UA negative. (2) Abnormal EKG ICD Codes: R94.31 - Abnormal electrocardiogram [ECG] [EKG] Status: Acute Plan: EKG changes post-op Cardiology consulted -No further workup at this time -Echo: EF 35-40%, CHF was discussed with the patient, patient expressed understanding and agreed to follow up with outpatient primary care provider. (3) FEN Plan: Fluids: Maintenance fluids Electrolytes: Monitor and replace is needed Nutrition: regular diet Prophylaxis: lovenox daily See the residents documentation for details. I saw and evaluated the patient regarding the jolley portions of this evaluation and agree with the residents findings and plans as written. Parts of this note were created using [employer] voice recognition software program. While efforts were made to correct any mistakes made by this software, some mistakes, errors, and omissions may remain in the final note that were not caught when the note was originally created. Plan of care was discussed and agreed upon with the patient as specifically documented in the above note. An opportunity to ask questions with explanation was provided. Patient voiced understanding on all information reviewed and discussed. (David Vee MD) Eliu Araya MD R1 Oct 14, 2017 10:16 David Vee MD Oct 15, 2017 10:15
[2017-10-14] MEDS: ACETAMINOPHEN/HYDROcodone 325 MG/7.5 MG TAB PO PRN (11:43)
[2017-10-14 12:00] VITALS: BP 145/81; PULSE 106; RESP 17; TEMP 97.7; O2SAT 99
== END 2017-10-14 14:30 | DRG 482 ==
LOC: NEPE 13:33 → NEDA 17:18 → HCIS 23:13 → N06B 10-12 16:30
PROVIDERS: ADMIT Family Medicine; ATTEND Family Medicine
PROC: 0QS606Z Reposition Right Upper Femur with Intramedullary Internal Fixation Device, Open Approach (ICD-10-PCS; principal; 2017-10-11 20:03)
DX: S72.141A Displaced intertrochanteric fracture of right femur, initial encounter for closed fracture (principal); I50.9 Heart failure, unspecified; F17.210 Nicotine dependence, cigarettes, uncomplicated; W01.0XXA Fall on same level from slipping, tripping and stumbling without subsequent striking against object, initial encounter; Y93.01 Activity, walking, marching and hiking; Y92.89 Other specified places as the place of occurrence of the external cause; W10.8XXA Fall (on) (from) other stairs and steps, initial encounter; R50.9 Fever, unspecified; R94.31 Abnormal electrocardiogram [ECG] [EKG]
CPT/HCPCS: 71046; 73502; 76000; 80048; 80053; 81001; 82550; 82552; 83036; 84484; 85025; 85027; 85610; 85730; 87040; 93005; 93306; 94150; 96374; C1713; J0690; J1580; J1650; J2175; J2270; J2405; J3010; J3370; J7040